=== PATIENT | male | born 1955 | race Caucasian/White ===

== ENCOUNTER 2019-03-10 12:32 | Observation (INO) | payer OTHER ==
[2019-03-10] MEDS ORDERED: Ondansetron PF 4 MG/2 ML Vial ONE (12:57)
[2019-03-10] MEDS ORDERED: diphenhydrAMINE 50 MG/ML VIAL ONE (12:57)
[2019-03-10] MEDS ORDERED: Succinylcholine Chloride 20 MG/ML 10 ml SYRINGE FS ONE (12:57)
[2019-03-10] MEDS ORDERED: Dexamethasone 20 MG/5 ML VIAL ONE (12:57)
[2019-03-10] MEDS ORDERED: Lidocaine 2% PF 5 ML VIAL ONE (12:57)
[2019-03-10] MEDS ORDERED: PROPOFOL 200 MG/20 ML VIAL ONE (12:57)
[2019-03-10] MEDS ORDERED: Ketorolac Tromethamine 30 MG/ML VIAL ONE (12:57)
--- NOTE | 2019-03-10 13:45 | RAD ---
LEFT HAND 4 VIEWS: Date: 03/10/19 HISTORY: Injury. FINDINGS: There are multiple linear fracture lines involving the proximal phalanx of the fourth digit. These fr acture lines predominantly run parallel to the shaft. There is no evidence of fragmentation or displa cement. There is a fracture involving the base of the proximal phalanx of the third finger with slight displa cement noted on the lateral view. There is a flexion deformity at the PIP joint of the third finger. IMPRESSION: Fractures involving the proximal phalanx of the third and fourth fingers. Flexion deformity at the PI P joint of the third finger. POS: OFF
[2019-03-10] MEDS ORDERED: Lidocaine 1% (PF) 30 ML VIAL ONE (14:51)
[2019-03-10 15:11] LABS: #Basophils 0.1 thou/uL (0.0-0.2); #Eosinphils 0.1 thou/uL (0.0-0.7); #Monocytes 0.5 thou/uL (0.11-0.59); #Neutrophils 8.5 thou/uL (1.40-6.50); %Basophils 0.5 % (0.0-1.0); %Eosinophils 0.9 % (0.0-10.0); %Lymphocytes 17.8 % (21.0-51.0); %Monocytes 4.5 % (0.0-10.0); %Neutrophils 76.4 % (42.0-75.0); Hemoglobin 17.8 g/dL (14.0-18.0); Mean Corpuscular HGB CONC 32.8 g/dL (32.0-36.0); Mean Corpuscular Hemoglobin 31.1 pg (27.0-31.0); Mean Corpuscular Volume 94.8 fL (78.0-98.0); RBC Distribution Width 11.4 % (11.5-14.5); Red Blood Cell (RBC) Count 5.72 mill/uL (4.70-6.10); White Blood Cell (WBC) Count 11.2 thou/uL (4.8-10.8)
[2019-03-10 15:31] LABS: ALT (SGPT) 25 U/L (8-55); AST (SGOT) 24 U/L (5-34); Albumin 4.7 g/dL (3.4-4.8); Alkaline Phosphatase 103 U/L (40-110); Anion Gap 15 mmol/L (10-20); BUN (Urea Nitrogen) 13 mg/dL (8.4-25.7); Bilirubin, Total 0.5 mg/dL (0.2-1.2); Calc. Creatinine Clearance 0 mL/min (70-130); Calcium 9.7 mg/dL (7.8-10.44); Carbon Dioxide 23 mmol/L (23-31); Chloride 104 mmol/L (98-107); Estimated GFR-MDRD Greater than 90; Globulin 3.8 g/dL (2.4-3.5); Glucose 89 mg/dL (80-115); Protein, Total 8.5 g/dL (5.8-8.1); Sodium 138 mmol/L (136-145)
--- NOTE | 2019-03-10 15:35 | RAD ---
PORTABLE CHEST: 03/10/19 HISTORY: Injury. Lungs are clear. The heart and mediastinum unremarkable. Vasculature normal. IMPRESSION: No acute findings. POS: OFF
[2019-03-10 15:37] LABS: MDiff Complete? YES; Mean Platelet Volume 9.2 fL (7.4-10.4); Platelet Clumps MODERATE; Platelet Morphology Comment PLT clumps seen-LOW; Polychromasia SLIGHT = 2-3 cells (100X) (0-2/hpf)
[2019-03-10] MEDS ORDERED: Fentanyl 100 MCG/2 ML VIAL ONE (17:50)
[2019-03-10] MEDS ORDERED: Neomycin-Polymyxin 1 ML AMP ONE (17:50)
[2019-03-10] MEDS ORDERED: TETANUS AND DIPHTHERIA TOX/PF 0.5 ML DISP.SYRIN IM SCH (19:30)
[2019-03-10] MEDS ORDERED: Morphine 2 MG/ML SYRINGE SLOW IVP PRN (19:30)
[2019-03-10] MEDS ORDERED: traMADol HCl 50 MG TAB PO PRN ×2 (19:30)
[2019-03-10] MEDS ORDERED: Communication Order-Pharmacy FS SCH (19:30)
[2019-03-10] MEDS ORDERED: Ondansetron PF 4 MG/2 ML Vial IV PRN (19:30)
[2019-03-10] MEDS: Ketorolac Tromethamine 30 MG/ML VIAL IVP SCH (23:20)
[2019-03-11] MEDS ORDERED: CEFAZOLIN 2 GM in Premix Bag 1 BAG IVPB SCH (02:00)
[2019-03-11] MEDS: Ketorolac Tromethamine 30 MG/ML VIAL IVP SCH (05:31)
[2019-03-11 06:04] LABS: #Eosinphils 0.2 thou/uL (0.0-0.7); #Lymphocytes 1.8 thou/uL (1.20-3.40); #Monocytes 0.7 thou/uL (0.11-0.59); #Neutrophils 8.9 thou/uL (1.40-6.50); %Basophils 0.2 % (0.0-1.0); %Eosinophils 1.6 % (0.0-10.0); %Lymphocytes 15.4 % (21.0-51.0); %Monocytes 6.2 % (0.0-10.0); %Neutrophils 76.5 % (42.0-75.0); Hemoglobin 14.3 g/dL (14.0-18.0); Mean Corpuscular HGB CONC 33.9 g/dL (32.0-36.0); Mean Corpuscular Hemoglobin 32.3 pg (27.0-31.0); Mean Corpuscular Volume 95.2 fL (78.0-98.0); Platelet Count 214 thou/uL (130-400); RBC Distribution Width 11.3 % (11.5-14.5); Red Blood Cell (RBC) Count 4.41 mill/uL (4.70-6.10); White Blood Cell (WBC) Count 11.6 thou/uL (4.8-10.8)
--- NOTE | 2019-03-11 07:34 | RAD ---
XR Finger(s) Lt Min 2 View History: Incision and drainage third digit Comparison: Radiograph same day Findings: No fluid as placement of a fractures through the proximal phalanx middle finger and ring fi ngers. Impression: No further fracture displacement.
[2019-03-11 07:57] VITALS: BP 100/65; TEMP 98.4
--- NOTE | 2019-03-11 18:27 | OP ---
DATE OF PROCEDURE: 03/10/2019 PREOPERATIVE DIAGNOSES: 1. Left long finger proximal phalanx fracture, open. 2. Left long finger extensor tendon laceration. 3. Left ring finger proximal phalanx fracture, open. 4. Left dorsal long and ring finger lacerations (approximately 5 cm.). POSTOPERATIVE DIAGNOSES: 1. Left long finger proximal phalanx fracture, open. 2. Left long finger extensor tendon laceration. 3. Left ring finger proximal phalanx fracture, open. 4. Left dorsal long and ring finger lacerations (approximately 5 cm.). PROCEDURES PERFORMED: 1. Left hand irrigation and debridement of open wounds. 2. Left hand dorsal laceration closure, approximately 5 cm, simple. 3. Left long and ring finger proximal phalanx fracture closed treatment with splinting. ANESTHESIA: General. TOURNIQUET TIME: Zero. ESTIMATED BLOOD LOSS: 5 mL. IMPLANTS: None. DRAINS: None. SPECIMENS: None. COMPLICATIONS: None. OUTCOME: Successful irrigation and debridement. INDICATIONS FOR PROCEDURE: The patient is a 63-year-old right-hand dominant gentleman, who was moving a 16-foot trailer, when the trailer tongue fell, crushing his left hand. He was found to have nondisplaced fractures of the long and ring finger proximal phalanx with laceration dorsally. 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 Unfortunately, this evening, we do not have hand surgery specialty available, and as such, after phone consultation with my hand surgeon, we decided to proceed with irrigation, debridement, and closure of the wounds and then proceed with extensor mechanism reconstruction at a later date. I have discussed with the patient the risks and benefits of the procedure. He appears to understand and does wish to proceed. Informed consent has been obtained. DESCRIPTION OF PROCEDURE: The patient was brought to the operating room and a time-out performed followed by induction of general anesthesia. Next, a sterile prep and drape was performed of the left upper extremity. The wounds were inspected. He was found to have 3 discrete lacerations, total length of approximately 5 cm. The long finger did have an obvious laceration of the central slip of the extensor as visualized through a distal laceration overlying the proximal interphalangeal joint. The more proximal laceration did get down to the extensor mechanism, but that did not appear to go through the extensor mechanism. All of these wounds were then thoroughly irrigated with bulb syringe, and then once irrigated, the wounds were closed with nylon in an interrupted fashion. The C-arm imaging device was brought into the operating room and the fractures imaged on both AP, oblique, and lateral images, that showed no displacement of the fractures. He did have a dimple or an indentation at the dorsal aspect of the long finger metacarpal, but again without fracture extension or felt to be an unstable situation for this bone. As such, once wound closures were performed, the wounds were dressed with Xeroform gauze and a fiberglass splint, holding the finger in extension. The patient was then transferred to recovery room in stable condition. The patient will follow up with Dr. Dano Sheehan for preoperative evaluation and anticipated extensor tendon reconstruction at a later date. Job ID: [id number]
--- NOTE | 2019-03-12 12:38 | DIS ---
DATE OF ADMISSION: 03/10/2019 DATE OF DISCHARGE: 03/11/2019 This is Deb Wyatt PA-C dictating a report for Chris Roy MD. PREOPERATIVE DIAGNOSES: 1. Left long finger proximal phalanx fracture, open. 2. Left long finger extensor tendon laceration. 3. Left ring finger proximal phalanx fracture, open. 4. Left dorsal long and ring finger lacerations, approximately 5 cm. POSTOPERATIVE DIAGNOSES: 1. Left long finger proximal phalanx fracture, open. 2. Left long finger extensor tendon laceration. 3. Left ring finger proximal phalanx fracture, open. 4. Left dorsal long and ring finger lacerations, approximately 5 cm. PROCEDURES PERFORMED: 1. Left hand irrigation and debridement of open wounds. 2. Left hand dorsal laceration closure, approximately 5 cm, simple. 3. Left long and ring finger proximal phalanx fracture, closed treatment with splinting. BRIEF HOSPITAL COURSE: The patient is a 63-year-old right-hand dominant gentleman, who was moving a 16-feet trailer, when the trailer tongue fell crushing his left hand. He was found to have nondisplaced fractures of the long and ring finger proximal phalanx with laceration dorsally. The patient has a long finger with a boutonniere type deformity. Unfortunately, on the evening of his injury, we did not have hand surgery specialty available, and as such, after a phone consultation with our hand surgeon, the patient was indicated for the above-mentioned procedure with extensor mechanism reconstruction at a later date. He underwent the surgery performed above. He did well in the operative suite and postoperatively was admitted to [place] [address] surgical floor. The patient received postoperative antibiotics. He did well postoperatively and he was then discharged home on postoperative day 1. No complications were incurred. He was discharged home on prophylactic antibiotics to prevent wound infection. DISCHARGE DISPOSITION: Home. DISCHARGE CONDITION: Stable. DISCHARGE INSTRUCTIONS: The patient will leave his splint intact. He will follow up with Dr. Sheehan, our hand specialist, as scheduled and as mentioned on his discharge paperwork. This appointment was set up for him. He will take his prophylactic antibiotics as prescribed as well as his pain medications as prescribed. All questions were answered. DISCHARGE MEDICATIONS: See MAR. Job ID: [id number]
== END 2019-03-11 10:25 | disposition home or self-care (01) ==
LOC: ERS 12:32 → SDC/OP 17:00 → SURG B 19:41
PROVIDERS: ADMIT Orthopaedic Surgery; ATTEND Orthopaedic Surgery
PROC: 0JQK0ZZ Repair Left Hand Subcutaneous Tissue and Fascia, Open Approach (ICD-10-PCS; principal; 2019-03-10)
DX: S62.643B Nondisplaced fracture of proximal phalanx of left middle finger, initial encounter for open fracture (principal); S62.645B Nondisplaced fracture of proximal phalanx of left ring finger, initial encounter for open fracture; S66.323A Laceration of extensor muscle, fascia and tendon of left middle finger at wrist and hand level, initial encounter; W23.1XXA Caught, crushed, jammed, or pinched between stationary objects, initial encounter; Z91.018 Allergy to other foods
CPT/HCPCS: 26725; 36415; 71045; 76000; 80053; 85025; 90714; 93005; 96365; 96375; 96376; G0378; J0131; J0690; J1100; J1200; J1885; J2001; J2270; J2405; J2704; J3010

== ENCOUNTER 2019-03-18 07:42 | Outpatient (CLI) | payer OTHER ==
[2019-03-18 12:12] LABS: #Basophils 0.1 thou/uL (0.0-0.2); #Eosinphils 0.1 thou/uL (0.0-0.7); #Lymphocytes 2.1 thou/uL (1.20-3.40); #Monocytes 0.5 thou/uL (0.11-0.59); #Neutrophils 5.4 thou/uL (1.40-6.50); %Basophils 0.9 % (0.0-1.0); %Lymphocytes 25.5 % (21.0-51.0); %Monocytes 5.7 % (0.0-10.0); %Neutrophils 66.9 % (42.0-75.0); Hemoglobin 15.1 g/dL (14.0-18.0); Mean Corpuscular HGB CONC 33.2 g/dL (32.0-36.0); Mean Corpuscular Hemoglobin 31.6 pg (27.0-31.0); Mean Corpuscular Volume 95.2 fL (78.0-98.0); Mean Platelet Volume 7.9 fL (7.4-10.4); Platelet Count 279 thou/uL (130-400); RBC Distribution Width 11.3 % (11.5-14.5); Red Blood Cell (RBC) Count 4.77 mill/uL (4.70-6.10); White Blood Cell (WBC) Count 8.1 thou/uL (4.8-10.8)
--- NOTE | 2019-03-18 17:32 | EKG ---
Test Reason : Blood Pressure : / mmHG Vent. Rate : 070 BPM Atrial Rate : 070 BPM P-R Int : 144 ms QRS Dur : 098 ms QT Int : 402 ms P-R-T Axes : 077 088 059 degrees QTc Int : 434 ms Normal sinus rhythm Minimal voltage criteria for LVH, may be normal variant Borderline ECG When compared with ECG of 10-MAR-2019 14:51, (Unconfirmed) No significant change was found Confirmed by DR. Ham HOWARD ([id number]) on 03/18/2019 5:31:46 PM Referred By: DESTINY Confirmed By:DR. Ham HOWARD
== END 2019-03-18 07:43 | disposition home or self-care (01) ==
LOC: LABBT 07:42
PROVIDERS: ATTEND Orthopaedic Surgery Hand Surgery
DX: Z01.818 Encounter for other preprocedural examination (principal); S62.603A Fracture of unspecified phalanx of left middle finger, initial encounter for closed fracture; S62.604A Fracture of unspecified phalanx of right ring finger, initial encounter for closed fracture; S66.319A Strain of extensor muscle, fascia and tendon of unspecified finger at wrist and hand level, initial encounter
CPT/HCPCS: 85025; 93005; 93010

== ENCOUNTER 2019-03-19 10:19 | Day surgery (SDC) | payer OTHER ==
[2019-03-18 10:16] VITALS: BMI 20.9
[2019-03-19] MEDS ORDERED: ePHEDrine/0.9% NaCl/PF SYRINGE 50 mg/10 ml ONE (10:57)
[2019-03-19] MEDS ORDERED: Lidocaine 1% PF 5 ML VIAL ONE (10:57)
[2019-03-19] MEDS ORDERED: PROPOFOL 200 MG/20 ML VIAL ONE (10:57)
[2019-03-19] MEDS ORDERED: Dexamethasone 20 MG/5 ML VIAL ONE (10:57)
[2019-03-19] MEDS ORDERED: Fentanyl 100 MCG/2 ML VIAL ONE (15:24)
[2019-03-19] MEDS ORDERED: Bupivacaine PF 0.5% 30 ML VIAL ONE (15:26)
[2019-03-19] MEDS ORDERED: Sodium Chloride 0.9% 10 ML ONE (15:26)
[2019-03-19] MEDS ORDERED: Bacitracin Zinc Ointment 30 gm TUBE ONE (15:26)
[2019-03-19] MEDS ORDERED: Betamet Acet/Betamet Na Ph 30 MG/5 ML VIAL ONE (15:26)
[2019-03-19] MEDS ORDERED: Ketorolac Tromethamine 30 MG/ML VIAL ONE (18:15)
--- NOTE | 2019-03-19 20:03 | RAD ---
Exam: XR Finger(s) Lt Min 2 View HISTORY: ORIF COMPARISON: 03/10/2019 FINDINGS: 5 intraoperative fluoroscopic images of the fingers are submitted for interpretation. Images demonstr ate multiple screws transfixing the previously noted comminuted fractures involving the proximal phalanx of the middle finger and ring finger. There is a single metallic pin overlying the base of th e middle phalanx of the middle finger and distal aspect of the proximal phalanx middle finger. Fluoroscopy: Total fluoroscopy time is 109 seconds with a total dose of 2.56 mGy IMPRESSION: Postoperative changes of the proximal phalanx of both the middle and ring fingers. Correlation with i ntraoperative findings is recommended.
--- NOTE | 2019-03-22 12:47 | OP ---
DATE OF PROCEDURE: 03/19/2019 PREOPERATIVE DIAGNOSES: 1. Left middle finger open wound with open proximal interphalangeal joint and zone 3 central slip complete laceration and zone 4 laceration is 8 mm, also has lateral band partial laceration. 2. Left ring finger wound, 2 cm with displaced proximal phalanx fracture. POSTOPERATIVE DIAGNOSES: 1. Left middle finger open wound with open proximal interphalangeal joint and zone 3 central slip complete laceration and zone 4 laceration is 8 mm, also has lateral band partial laceration. 2. Left ring finger wound, 2 cm with displaced proximal phalanx fracture. PROCEDURES PERFORMED: 1. Left middle finger: a. Wound debridement. b. Proximal phalangeal joint debridement. c. Zone 3 central slip repair, complete with pinning of joint. d. Zone 4 extensor tendon repair. e. Open reduction and internal fixation of proximal phalanx fracture. 2. Left ring finger: a. Wound debridement. b. Open reduction and internal fixation of proximal phalanx fracture. TOURNIQUET TIME: 60 minutes. ESTIMATED BLOOD LOSS: 20 mL. INJECTABLE: 20 mL of 0.5% Marcaine without epinephrine. DESCRIPTION OF PROCEDURE: After successful general endotracheal anesthesia, the patient had a digital block performed on both sides of the middle finger and the ring finger. A total of 15 mL of 0.5% Marcaine was used at this point. Then, the patient had the wounds extended on the dorsum of his ring finger and middle finger proximal phalanx. The middle finger was approached 1st as damage. It was here that we saw this with dissection of segmental extensor tendon lacerations as well as the fact that central slip was almost completely lacerated. We then irrigated the joint. Proximal phalangeal joint was debrided using the same material we used to debride the wounds which is as follows. 1. Excision technique. 2. Use of Chester blade, tenotomy scissors, A[place]on with and without teeth, and a curette. 3. It was down to in this case including the joint and there was no evidence of gross contamination at this point. We then staged the wound and joint debridement using techniques listed above and now we addressed the fracture. Fracture was then reduced, then we placed 4 screws in a lag technique, 1.5 screws into an anatomic position with no malrotation confirmed. We then repaired with an interrupted [id number] the central slip laceration before we tied the sutures, we pinned the joint at 0 degrees extension and no radial or ulnar deviation. We did a 4-0 Prolene interrupted [id number] for the zone 4 midportion of proximal phalanx laceration as well as the lateral band. We then turned attention to the left ring finger, where we did the same type of wound debridement. It was here, however, no tendon laceration was seen, so we lifted up the sagittal bands and placed 3 lag screws and appropriate compression and there was no anatomical rotational defects seen here o radiographs. Tourniquet was deflated. Hemostasis was obtained. Both wounds were closed with interrupted 4-0 Monocryl undyed followed by epidermal closure with interrupted 5-0 nylon in a simple mattress pattern. A splint was applied appropriately. The patient left the operating room without evidence of anesthetic or operative complication. Job ID: [id number]
== END 2019-03-19 19:35 | disposition home or self-care (01) ==
LOC: SDC 10:19
PROVIDERS: ATTEND Orthopaedic Surgery Hand Surgery
DX: S66.313A Strain of extensor muscle, fascia and tendon of left middle finger at wrist and hand level, initial encounter (principal); S62.613B Displaced fracture of proximal phalanx of left middle finger, initial encounter for open fracture; S62.615B Displaced fracture of proximal phalanx of left ring finger, initial encounter for open fracture; F17.200 Nicotine dependence, unspecified, uncomplicated; Z79.2 Long term (current) use of antibiotics; Z91.018 Allergy to other foods; W23.0XXA Caught, crushed, jammed, or pinched between moving objects, initial encounter
CPT/HCPCS: 76000; C1713; J0131; J0690; J0702; J1100; J1885; J2001; J2704; J3010; J3490; S0020